=== PATIENT | male | born 1955 | race Caucasian/White ===

== ENCOUNTER 2018-11-03 09:04 | Outpatient (CLI) | payer BC ==
[2018-11-03 18:49] LABS: CHOL/HDL RATIO 3.7 (<5.0); CHOLESTEROL 153 mg/dL; HDL CHOLESTEROL 41 mg/dL; LDL CHOLESTEROL,CALCULATED 88 mg/dL; LDL/HDL RATIO 2.1 (<3.6); VLDL CHOLESTEROL 24 mg/dL
== END 2018-11-03 09:05 | disposition home or self-care (01) ==
LOC: LAB.F 09:04
PROVIDERS: ATTEND Nurse Practitioner Family
DX: Z13.220 Encounter for screening for lipoid disorders (principal); Z12.5 Encounter for screening for malignant neoplasm of prostate
CPT/HCPCS: 36415; 80061; 83721; 84153

== ENCOUNTER 2018-11-03 09:57 | Outpatient (CLI) | payer BC ==
--- NOTE | 2018-11-03 13:53 | XRAY Report ---
Reason: KNEE JOINT PAIN Procedure Date: 11/03/2018 Accession Number: [id number] / [id number] Procedure: XR - Knee 4 View BILAT CPT Code: FULL RESULT: EXAMS: 1. Right Knee Radiography 2. Left Knee Radiography EXAM DATE:11/03/2018 10:18 AM. CLINICAL HISTORY:Knee joint pain. COMPARISON: None. TECHNIQUE: 4 views each. FINDINGS: Right Knee: Bones: Normal. No fractures or bone lesions. Joints: Mild loss of joint space height predominantly in the medial femorotibial compartment. No effusion. No subluxations. Soft Tissues: Normal. No soft tissue swelling. Left Knee: Bones: Normal. No fractures or bone lesions. Joints: Mild loss of joint space height predominantly in the medial femorotibial compartment. No effusion. No subluxations. Soft Tissues: Normal. No soft tissue swelling. IMPRESSION: Bilateral mild degenerative changes. RADIA
== END 2018-11-03 09:58 | disposition home or self-care (01) ==
LOC: DI 09:57
PROVIDERS: ATTEND Nurse Practitioner Family
DX: M17.0 Bilateral primary osteoarthritis of knee (principal)

== ENCOUNTER 2023-09-20 09:27 | Emergency (ER) | payer MEDICARE, OTHER ==
[2023-09-20 09:55] LABS: BASOPHILS # (AUTO) 0.1 10^3/uL (0.0-0.1); BASOPHILS % (AUTO) 0.6 %; EOSINOPHILS # (AUTO) 0.1 10^3/uL (0.0-0.7); EOSINOPHILS % (AUTO) 1.7 %; HCT - HEMATOCRIT 46.7 % (42.0-52.0); HGB - HEMOGLOBIN 15.6 g/dL (14.0-18.0); LYMPHOCYTES # (AUTO) 0.8 10^3/uL (1.5-3.5); LYMPHOCYTES % (AUTO) 10.3 %; MEAN CORPUSCULAR HEMOGLOBIN 31.8 pg (27.0-31.0); MEAN CORPUSCULAR HGB CONC 33.4 g/dL (32.0-36.0); MEAN CORPUSCULAR VOLUME 95.3 fL (80.0-94.0); MEAN PLATELET VOLUME 9.8 fL (7.4-11.4); MONOCYTES # (AUTO) 0.6 10^3/uL (0.0-1.0); MONOCYTES % (AUTO) 7.7 %; NEUTROPHILS # (AUTO) 6.5 10^3/uL (1.5-6.6); NEUTROPHILS % (AUTO) 79.5 %; PLT - PLATELET COUNT 212 10^3/uL (130-450); RED CELL DISTRIBUTION WIDTH 12.8 % (12.0-15.0); WHITE BLOOD COUNT 8.1 x10^3/uL (4.8-10.8)
[2023-09-20 10:08] LABS: ALBUMIN 4.8 g/dL (3.2-5.5); ALBUMIN/GLOBULIN RATIO 1.7 (1.0-2.2); BILIRUBIN,TOTAL 0.8 mg/dL (0.2-1.0); CALCIUM 9.7 mg/dL (8.5-10.3); CREATININE 0.8 mg/dL (0.6-1.3); TOTAL PROTEIN 7.7 g/dL (6.4-8.9)
--- NOTE | 2023-09-20 13:33 | ED Physician Documentation ---
History of Present Illness - Stated complaint Stated Complaint: GI,ABD PX - Chief complaint Chief Complaint: Abd Pain - History obtained from History obtained from: Patient - Additonal information Additional information: The patient comes to the emergency department for chief complaint of feeling the urge to have a bowel movement but unable to do so since yesterday morning. He states that it seems like the "blockage" is right near his anus. He denies any blood in his stools. He tried taking several doses of Dulcolax over the last 24 hours and now is having a little bit of liquid leaking Out when he tries to have a bowel movement but nothing else. He has not tried any home enemas. No abdominal pain. No nausea or vomiting. He has a history of a right inguinal hernia repair and has not noticed any bulging or other issues in the area. No other complaints at this time. His last colonoscopy was 7 years ago at which time he was told he did not need another one for 10 years. PD PAST MEDICAL HISTORY - Past Medical History Past Medical History: No - Past Surgical History Past Surgical History: Yes General: Other - Present Medications Home Medications: Ambulatory Orders Medication Instructions Recorded Confirmed Magnesium Citrate 148 ml PO BID PRN #396 ml 09/20/23 - Allergies Allergies/Adverse Reactions: Allergies Allergy/AdvReac Type Severity Reaction Status Date / Time No Known Drug Allergies Allergy Verified 09/20/23 09:41 - Social History Does the pt smoke?: No Smoking Status: Never smoker PD ED PE NORMAL - Vitals Vital signs reviewed: Yes - General General: Alert and oriented X 3, No acute distress, Well developed/nourished - HEENT HEENT: Atraumatic, PERRL - Neck Neck: Supple, no meningeal sign - Respiratory Respiratory: No respiratory distress - Abdomen Abdomen: Soft, Non tender, Non distended - Rectal Rectal: Other (Normal external exam. On digital rectal exam the patient has a large, claylike mass of stool. No blood. No soft tissue mass.) - Derm Derm: Warm and dry - Extremities Extremities: No deformity - Neuro Neuro: Alert and oriented X 3 - Psych Psych: Normal mood, Normal affect Results - Vitals Vitals: Vital Signs - 24 hr 09/20/23 09/20/23 09:39 13:41 Temperature 36.3 C L Heart Rate 78 77 Respiratory 14 18 Rate Blood Pressure 161/85 H 133/73 H O2 Saturation 99 95 Oxygen O2 Source Room air - Labs Labs: Laboratory Tests 09/20/23 09/20/23 09:19 09:19 WBC 8.1 RBC 4.90 Hgb 15.6 Hct 46.7 MCV 95.3 H MCH 31.8 H MCHC 33.4 RDW 12.8 Plt Count 212 MPV 9.8 Neut # (Auto) 6.5 Lymph # (Auto) 0.[address] [place] # (Auto) 0.6 Eos # (Auto) 0.1 Baso # (Auto) 0.1 Absolute Nucleated RBC 0.00 Nucleated RBC % 0.0 Sodium 139 Potassium 4.0 Chloride 102 Carbon Dioxide 31 Anion Gap 6.0 BUN 12 Creatinine 0.8 Estimated GFR (MDRD) 97 Glucose 140 H Calcium 9.7 Total Bilirubin 0.8 AST 21 ALT 28 Alkaline Phosphatase 69 Total Protein 7.7 Albumin 4.8 Globulin 2.9 Albumin/Globulin Ratio 1.7 Lipase 12 PD Medical Decision Making - ED course Complexity details: considered differential, d/w patient ED course: Disimpaction was performed in the emergency department. The patient had a large bowel movement here and reported feeling much better. I have discussed with the patient that he will need to do some home enemas and take laxative, as well as make a habit of eating a higher fiber diet as this does not happen again. Departure - Departure Disposition: 01 Home, Self Care Clinical Impression: Fecal impaction Condition: Stable Instructions: ED Impaction Fecal Treated Prescriptions: Magnesium Citrate 148 ml PO BID PRN #396 ml PRN Reason: Constipation Comments: A fecal disimpaction has been performed today and quite a bit of stool has been gotten out of your rectum. However, there is more that will need to be pushed out. You will need to work on softening this at home by using at home enemas, which you can get [id number] at any pharmacy. You should do them every 6 hours until you are able to have a bowel movement. A liquid laxative has also been prescribed and the prescription has been sent to the [facility] in [place] at your request. Please take this as prescribed as well until you have a bowel movement. Forms: PCP List Discharge Date/Time: 09/20/23 13:51
[2023-09-20 13:54] VITALS: BP 133/73; O2SAT 95
== END 2023-09-20 13:51 | disposition home or self-care (01) ==
LOC: ED 09:27
DX: K56.41 Fecal impaction (principal)
CPT/HCPCS: 36415; 80053; 83690; 85025; 99283